=== PATIENT | female | born 1950 | race Caucasian/White ===

== ENCOUNTER 2022-02-18 12:02 | Emergency (ER) | payer OTHER, MEDICARE, BC ==
[2022-02-18] MEDS ORDERED: Bacitracin 1 PK ONE (12:51)
== END 2022-02-18 13:19 | disposition home or self-care (01) ==
LOC: ERS 12:02
DX: S81.052A Open bite, left knee, initial encounter (principal); W54.0XXA Bitten by dog, initial encounter
CPT/HCPCS: 99283